=== PATIENT | male | born 1955 | race Asian ===

== ENCOUNTER 2024-07-31 12:42 | Emergency (ER) | payer BC ==
[2024-07-31 12:54] VITALS: BMI 23.7
[2024-07-31 14:52] LABS: EOS % 5.6 % (0-4.5); HEMATOCRIT 44.9 % (35.4-49); HEMOGLOBIN 15.2 GM/dL (11.7-16.9); LYMPH % 35.9 % (8-40); MCH 27.7 pg (25.7-33.7); MEAN CELL VOLUME 81.5 fl (80-96); MEAN PLT VOLUME 7.2 fl (7.5-11.1); MONO % 7.7 % (3.8-10.2); NEUT % 49.8 % (42.8-82.8); PLATELET COUNT 233 10^3/uL (134-434); RBC 5.51 M/mm3 (4.00-5.60); RDW 13.8 % (11.9-15.9); WHITE BLOOD COUNT 5.7 K/mm3 (4.0-10.0)
[2024-07-31 15:16] LABS: POTASSIUM 4.1 mmol/L (3.5-5.1)
[2024-07-31 15:19] LABS: ALBUMIN 4.1 g/dl (3.4-5.0); CALCIUM 9.6 mg/dL (8.5-10.1); MAGNESIUM 2.3 mg/dL (1.8-2.4)
[2024-07-31 15:22] LABS: CREATININE 0.8 mg/dL (0.55-1.3); PHOSPHOROUS 3.9 mg/dL (2.5-4.9)
[2024-07-31 15:24] LABS: BILIRUBIN,TOTAL 0.6 mg/dL (0.2-1); TOT PROT 6.9 g/dl (6.4-8.2)
[2024-07-31 15:27] LABS: N-TERMINAL BNP 14.8 pg/ml (5-125)
[2024-07-31] MEDS: APIXABAN 5 MG TABLET PO ONE (16:01)
[2024-07-31 16:05] VITALS: BP 136/78; PULSE 72; RESP 19; TEMP 97.8
== END 2024-07-31 16:07 | disposition home or self-care (01) ==
LOC: JER 12:42
DX: I48.91 Unspecified atrial fibrillation (principal)
CPT/HCPCS: 36415; 80053; 83735; 83880; 84100; 84443; 84484; 85025; 93005; 93010; 93306-TC; 99284-25